=== PATIENT | male | born 1975 | race Caucasian/White ===

== ENCOUNTER 2022-09-12 11:39 | Emergency (ER) | payer MEDICAID ==
[~2022-09-12] VITALS: Ht 182.9 cm; Wt 72.7 kg
[2022-09-12 11:41] VITALS: BP 143/87
--- NOTE | 2022-09-12 13:22 | NUR ---
XRAY AT BS
[2022-09-12] MEDS ORDERED: ibuprofen 200mg tablet PO ONE (13:45)
== END 2022-09-12 14:11 | disposition home or self-care (01) ==
LOC: ER 11:40
DX: R07.81 Pleurodynia (principal); Z88.0 Allergy status to penicillin; Z79.899 Other long term (current) drug therapy; W19.XXXA Unspecified fall, initial encounter; Y93.89 Activity, other specified; Y92.89 Other specified places as the place of occurrence of the external cause; Y99.8 Other external cause status
CPT/HCPCS: 71045; 72170; 99284